=== PATIENT | male | born 1960 | race Caucasian/White ===

== ENCOUNTER → 2016-03-15 | Outpatient (CLI) | payer BC ==
[~2016-03-15] MED LIST: CHOL100010 PO; DEXL60CA4 PO; HYDR-5688 PO; IBUP-103 PO; LEVO-366 PO; MULT-506 PO; OMEG10007 PO; PRT/40 PO; SERT-234 PO; TAMS0.4C38 PO; VALA500T60 PO; ZNTT/150 PO
--- NOTE | 2016-03-15 14:32 | DIAGNOSTIC IMAGING REPORT ---
TESTICULAR ULTRASOUND CLINICAL HISTORY: Right testicular pain COMPARISON STUDY: No previous studies for comparison. FINDINGS: The right testis measures 4.9 x 2.3 x 3.2 cm. Left testis measures 5.1 x 2.2 x 2.9 cm. There are no intratesticular masses. There is no evidence of testicular torsion. There are postsurgical changes visualized within the right inguinal region. There are trace bilateral hydroceles. The right testis appears to demonstrate an inverted orientation IMPRESSION: 1. No evidence of intratesticular mass 2. No evidence of testicular torsion 3. Postsurgical changes in the right inguinal region Electronically signed by: Javi Badillo M.D. 03/15/2016 2:30 PM Dictated Date/Time: 03/15/2016 2:29 PM
== END | disposition home or self-care (01) ==
LOC: C.ULTR 13:55
PROVIDERS: ATTEND Urology
DX: N50.811 Right testicular pain (principal)

== ENCOUNTER 2016-08-30 10:35 | Emergency (ER) | payer BC ==
[~2016-08-30] VITALS: Ht 177.8 cm; Wt 98.5 kg
[~2016-08-30 10:35] MED LIST changes: -HYDR-5688 PO; -LEVO-366 PO; -PRT/40 PO; -VALA500T60 PO
[2016-08-30] MEDS ORDERED: ACETAMINOPHEN 500 MG TAB PO STA (10:46)
[2016-08-30] MEDS ORDERED: SODIUM CHLORIDE 0.9% 1000ML 1,000 ML IV ONE (10:46)
[2016-08-30] MEDS ORDERED: PIPERACILLIN/TAZOBACTAM 4.5 GM/100ML D5W IV STA (10:46)
[2016-08-30] MEDS ORDERED: KETOROLAC TROMETHAMINE 30 MG/ML VIAL IV STA (10:46)
[2016-08-30] MEDS ORDERED: ONDANSETRON INJ 2 MG/ML 2 ML VIAL IV STA (10:46)
[2016-08-30 10:54] VITALS: Ht 177.8 cm; Wt 98.5 kg
[2016-08-30 11:10] LABS: URINE APPEARANCE CLOUDY (CLEAR); URINE BILIRUBIN NEG (NEG); URINE COLOR DK YELLOW; URINE EPITHELIAL CELL AUTO >30 /lpf (0-5); URINE NITRITE POS (NEG); URINE PH 5.5 (4.5-7.5); URINE SPECIFIC GRAVITY 1.023 (1.000-1.030); UROBILINOGEN NEG (NEG); ZZUR CULT IF INDIC CLEAN CATCH YES
[2016-08-30 11:14] LABS: MANUAL MICROSCOPIC REQUIRED? NO; REVIEW REQ? NO
--- NOTE | 2016-08-30 11:15 | DIAGNOSTIC IMAGING REPORT ---
CHEST ONE VIEW PORTABLE CLINICAL HISTORY: Sepsis dyspnea COMPARISON STUDY: 08/23/2010 FINDINGS: The bones soft tissues and hemidiaphragms are normal. The cardiomediastinal silhouette is normal. The lungs are clear. The pulmonary vasculature is normal. IMPRESSION: Negative chest. Electronically signed by: Edinson Pereira M.D. 08/30/2016 11:13 AM Dictated Date/Time: 08/30/2016 11:13 AM
[2016-08-30 11:25] VITALS: O2SAT 95
[2016-08-30 11:31] LABS: BASO % 0.1 %; BASO ABS # 0.01 K/uL (0-0.2); COMPLETE YES; EOS % 0.3 %; HEMATOCRIT 48.1 % (42-52); IG% 0.2 %; LYMPH % 5.3 %; MEAN CELL VOLUME 90.6 fL (80-100); MEAN CORPUSCULAR HEMOGLOBIN 30.1 pg (25-34); MEAN CORPUSCULAR HGB CONC 33.3 g/dl (32-36); MEAN PLATELET VOLUME 9.9 fL (7.4-10.4); MONO % 7.9 %; NEUT % 86.2 %; PLATELET COUNT 171 K/uL (130-400); RED BLOOD COUNT 5.31 M/uL (4.7-6.1); WHITE BLOOD COUNT 14.97 K/uL (4.8-10.8)
--- NOTE | 2016-08-30 11:32 | DIAGNOSTIC IMAGING REPORT ---
CT OF THE ABDOMEN AND PELVIS WITHOUT CONTRAST, STONE PROTOCOL CLINICAL HISTORY: Urinary symptoms, fever, hematuria and weight loss. COMPARISON STUDY: CT of the abdomen and pelvis October 01, 2006. TECHNIQUE: Helical axial images of the abdomen and pelvis were obtained without IV or oral contrast according to renal stone protocol. FINDINGS: Lung bases are clear. No renal, ureteral or bladder calculi are identified. There is no hydronephrosis or hydroureter. There is mild symmetric bilateral perinephric infiltration. Moderate bladder wall thickening is accentuated by underdistention. There is mild adjacent infiltration. There is infiltration within the right groin. This may be postsurgical. There are scrotal surgical clips. Evaluation of the remainder of the abdomen and pelvis is suboptimal on this unenhanced exam. There is fatty infiltration of the liver. The spleen, adrenal glands and pancreas are normal. There is no evidence for a bowel obstruction. The appendix is normal. No suspicious skeletal lesions are identified. IMPRESSION: 1. No urinary calculi or hydronephrosis. 2. Moderate bladder wall thickening which is accentuated by underdistention. Mild infiltration adjacent to the bladder. The findings could be correlated with urinalysis. 3. Subtle right groin infiltration which is likely postsurgical. No associated fluid collection. 4. Fatty liver. Electronically signed by: Santiago Bernardo M.D. 08/30/2016 11:31 AM Dictated Date/Time: 08/30/2016 11:21 AM
[2016-08-30] MEDS ORDERED: VALA500T60 PO (11:38)
[2016-08-30] MEDS ORDERED: PRT/40 PO (11:38)
[2016-08-30 11:42] LABS: PARTIAL THROMBOPLASTIN RATIO 1.2; PROTHROMBIN TIME (PATIENT) 11.2 SECONDS (9.0-12.0)
--- NOTE | 2016-08-30 11:49 | EMERGENCY ROOM VISIT NOTE ---
History Report prepared by Jose: Eve Yuen Under the Supervision of: Dr. Ross De La Fuente M.D. First contact with patient: 10:45 Chief Complaint: URINARY SYMPTOMS Stated Complaint: URINARY SYMPTOMS, FEVER, WEIGHT LOSS Nursing Triage Summary: Pt c/o trouble urinating since the 28 of August and pain in abdomen and back on left side. Fever last night highter than 102 and today. Ibuprofen around 0700 Called urologist, told to come here. History of Present Illness The patient is a 56 year old male who presents to the Emergency Room with complaints of worsening urinary symptoms that started 2 days ago. He is experiencing pain with urination, increased urinary frequency, and decreased urine volume. He states that it is painful to urinate and it does not burn. The patient is also experiencing left lower quadrant abdominal pain and lower left- sided back pain. The patient took ibuprofen around 0700 this morning. He is also experiencing fevers and chills. He recorded a fever of 102.9 yesterday and 102.3 this morning. He is also experiencing a headache and nausea. He states that the nausea started this morning and he denies any vomiting. The patient states that he has not eaten much yesterday or today. The patient is also experiencing edema in his bilateral hands. The patient states that he did yard work 4-5 days ago, hiked [place] 3 days ago, and took a 22 mile bike ride 2 days ago so originally he thought his pain was secondary to all of the activity that he had been doing. The patient adds that he recently had a right inguinal hernia repair. He denies testicular pain. The patient called his urologist and he told him to come into the ED for further evaluation. The patient denies any history of kidney stones, but he states that he had a kidney infection when he was 15. The patient adds that he recently had a urinary tract infection. Source of History: patient Onset: 2 days ago Position: abdomen Quality: other (pain with urination, increased urinary frequency, decreased urine volume) Timing: worsening Associated Symptoms: + fevers, + chills, + headache, + nausea, + abdominal pain (left lower quadrant), + back pain (lower left-sided), No vomiting Note: bilateral hand edema, no testiculr pain Review of Systems See HPI for pertinent positives & negatives. A total of 10 systems reviewed and were otherwise negative. Past Medical & Surgical Medical Problems: (1) Kidney disease Surgical Problems: (1) History of cervical spinal surgery (2) History of inguinal hernia repair (3) Status post correction of deviated nasal septum Family History Cancer Diabetes mellitus Seizures Social History Smoking Status: Never Smoker Marital Status: Housing Status: lives with family Occupation Status: employed Current/Historical Medications Scheduled Cholecalciferol (Vitamin D), 1 TAB PO QAM Fish Oil (Ollie-3), 1 CAP PO QAM Levofloxacin (Levaquin), 500 MG PO DAILY Multivitamin (Multivitamin), 1 TAB PO QAM Pantoprazole (Pantoprazole Sodium), 40 MG PO BID Ranitidine (Zantac), 150 MG PO HS Sertraline (Zoloft), 100 MG PO QAM Tamsulosin Hcl (Flomax), 0.4 MG PO HS Valacyclovir (Valtrex), 500 MG PO BID Scheduled PRN Ibuprofen Tab (Advil), 200-600 MG PO Q4H PRN for Pain Allergies Coded Allergies: Dust (Verified Allergy, Unknown, EYE SWELLING AND SOB, 08/30/16) Lactose Intolerance (GI) (Verified Allergy, Unknown, DIARRHEA, 08/30/16) Molds and Smuts (Verified Allergy, Unknown, EYE SWELLING AND SOB, 08/30/16) NO KNOWN DRUG ALLERGIES (Verified Allergy, Unknown, ., 02/22/16) Shellfish (Verified Allergy, Unknown, N/V/ITCHY, 08/30/16) Physical Exam Vital Signs Date Time Temp Pulse Resp B/P (MAP) Pulse Ox O2 Delivery O2 Flow Rate FiO2 08/30/16 13:32 89 18 112/76 96 08/30/16 12:55 37.5 96 20 95 Room Air 08/30/16 12:30 100 16 126/93 94 Room Air 08/30/16 12:09 100 08/30/16 11:25 95 Room Air 08/30/16 11:25 108 18 126/80 95 Room Air 08/30/16 10:38 38.1 112 18 126/71 94 Room Air Physical Exam GENERAL: Patient is in no acute distress. HEENT: No acute trauma, normocephalic atraumatic, mucous membranes moist, no nasal congestion, no scleral icterus. NECK: No stridor, no adenopathy, no meningismus, trachea is midline. LUNGS: Clear to auscultation bilaterally, no wheeze, no rhonchi, breath sounds equal. HEART: Tachycardic, regular rhythm, no murmurs. ABDOMEN: Soft, tender in left lower quadrant, bowel sounds positive, no hernias , no peritonitis. BACK: Left flank discomfort with percussion. EXTREMITIES: No cyanosis or edema, full range of motion of all the joints without pain or difficulty, no signs for acute trauma. NEUROLOGIC: Oriented x 3, no acute motor or sensory deficits, no focal weakness. SKIN: No rash, no jaundice, no diaphoresis. Medical Decision & Procedures ER Provider Diagnostic Interpretation: Radiology results as stated below per my review and radiologist interpretation: CHEST ONE VIEW PORTABLE FINDINGS: The bones soft tissues and hemidiaphragms are normal. The cardiomediastinal silhouette is normal. The lungs are clear. The pulmonary vasculature is normal. IMPRESSION: Negative chest. Electronically signed by: Edinson Pereira M.D. 08/30/2016 11:13 AM Dictated Date/Time: 08/30/2016 11:[address] OF THE ABDOMEN AND PELVIS WITHOUT CONTRAST, STONE PROTOCOL FINDINGS: Lung bases are clear. No renal, ureteral or bladder calculi are identified. There is no hydronephrosis or hydroureter. There is mild symmetric bilateral perinephric infiltration. Moderate bladder wall thickening is accentuated by underdistention. There is mild adjacent infiltration. There is infiltration within the right groin. This may be postsurgical. There are scrotal surgical clips. Evaluation of the remainder of the abdomen and pelvis is suboptimal on this unenhanced exam. There is fatty infiltration of the liver. The spleen, adrenal glands and pancreas are normal. There is no evidence for a bowel obstruction. The appendix is normal. No suspicious skeletal lesions are identified. IMPRESSION: 1. No urinary calculi or hydronephrosis. 2. Moderate bladder wall thickening which is accentuated by underdistention. Mild infiltration adjacent to the bladder. The findings could be correlated with urinalysis. 3. Subtle right groin infiltration which is likely postsurgical. No associated fluid collection. 4. Fatty liver. Electronically signed by: Santiago Bernardo M.D. 08/30/2016 11:31 AM Dictated Date/Time: 08/30/2016 11:21 AM Laboratory Results 08/30/16 11:02 Red Blood Count 5.31, Mean Corpuscular Volume 90.6, Mean Corpuscular Hemoglobin 30.1, Mean Corpuscular Hemoglobin Concent 33.3, Mean Platelet Volume 9.9, Neutrophils (%) (Auto) 86.2, Lymphocytes (%) (Auto) 5.3, Monocytes (%) (Auto) 7.9, Eosinophils (%) (Auto) 0.3, Basophils (%) (Auto) 0.1, Neutrophils # (Auto) 12.89, Lymphocytes # (Auto) 0.80, Monocytes # (Auto) 1.19, Eosinophils # (Auto) 0.05, Basophils # (Auto) 0.01 08/30/16 11:02 Test 08/30/16 10:52 08/30/16 11:02 08/30/16 11:13 Urine Color DK YELLOW Urine Appearance CLOUDY (CLEAR) Urine pH 5.5 (4.5-7.5) Urine Specific [place] 1.023 (1.000-1.030) Urine Protein 1+ (NEG) Urine Glucose (UA) NEG (NEG) Urine Ketones TRACE (NEG) Urine Occult Blood 2+ (NEG) Urine Nitrite POS (NEG) Urine Bilirubin NEG (NEG) Urine Urobilinogen NEG (NEG) Urine Leukocyte Esterase LARGE (NEG) Urine WBC (Auto) >30 /hpf (0-5) Urine RBC (Auto) 5-10 /hpf (0-4) Urine Hyaline Casts (Auto) 1-5 /lpf (0-5) Urine Epithelial Cells (Auto) >30 /lpf (0-5) Urine Bacteria (Auto) 4+ (NEG) White Blood Count 14.97 K/uL (4.8-10.8) Red Blood Count 5.31 M/uL (4.7-6.1) Hemoglobin 16.0 g/dL (14.0-18.0) Hematocrit 48.1 % (42-52) Mean Corpuscular Volume 90.6 fL (80-100) Mean Corpuscular Hemoglobin 30.1 pg (25-34) Mean Corpuscular Hemoglobin Concent 33.3 g/dl (32-36) Platelet Count 171 K/uL (130-400) Mean Platelet Volume 9.9 fL (7.4-10.4) Neutrophils (%) (Auto) 86.2 % Lymphocytes (%) (Auto) 5.3 % Monocytes (%) (Auto) 7.9 % Eosinophils (%) (Auto) 0.3 % Basophils (%) (Auto) 0.1 % Neutrophils # (Auto) 12.89 K/uL (1.4-6.5) Lymphocytes # (Auto) 0.80 K/uL (1.2-3.4) Monocytes # (Auto) 1.19 K/uL (0.11-0.59) Eosinophils # (Auto) 0.05 K/uL (0-0.5) Basophils # (Auto) 0.01 K/uL (0-0.2) RDW Standard Deviation 41.6 fL (36.4-46.3) RDW Coefficient of Variation 12.6 % (11.5-14.5) Immature Granulocyte % (Auto) 0.2 % Immature Granulocyte # (Auto) 0.03 K/uL (0.00-0.02) Prothrombin Time 11.2 SECONDS (9.0-12.0) Prothromb Time International Ratio 1.0 (0.9-1.1) Activated Partial Thromboplast Time 31.8 SECONDS (21.0-31.0) Partial Thromboplastin Ratio 1.2 Anion Gap 8.0 mmol/L (3-11) Est Creatinine Clear Calc Drug Dose 73.8 ml/min Estimated GFR () 70.2 Estimated GFR (Non- 60.6 BUN/Creatinine Ratio 9.8 (10-20) Calcium Level 9.0 mg/dl (8.5-10.1) Total Bilirubin 2.1 mg/dl (0.2-1) Aspartate Amino Transf (AST/SGOT) 19 U/L (15-37) Alanine Aminotransferase (ALT/SGPT) 34 U/L (12-78) Alkaline Phosphatase 56 U/L (45-117) Total Protein 7.8 gm/dl (6.4-8.2) Albumin 3.6 gm/dl (3.4-5.0) Globulin 4.2 gm/dl (2.5-4.0) Albumin/Globulin Ratio 0.9 (0.9-2) Bedside Lactic Acid Venous 1.38 mmol/L (0.90-1.70) Laboratory results reviewed by me. Medications Administered Medications (Trade) Dose Ordered Sig/Dino Route Start Time Stop Time Status Last Admin Dose Admin Sodium Chloride 1,000 ml @ 999 mls/hr Q1H1M ONCE IV 08/30/16 10:46 08/30/16 11:46 DC 08/30/16 11:23 999 MLS/HR Piperacillin Sod/ Tazobactam Sod (Zosyn Iv) 4.5 gm ONE STAT IV 08/30/16 10:46 08/30/16 10:51 DC 08/30/16 11:24 4.5 GM Acetaminophen (Tylenol Tab) 1,000 mg NOW STAT PO 08/30/16 10:46 08/30/16 10:51 DC 08/30/16 11:25 1,000 MG Ketorolac Tromethamine (Toradol Inj) 15 mg NOW STAT IV 08/30/16 10:46 08/30/16 10:51 DC 08/30/16 11:24 15 MG Ondansetron HCl (Zofran Inj) 4 mg NOW STAT IV 08/30/16 10:46 08/30/16 10:51 DC 08/30/16 11:25 4 MG Levofloxacin (Levaquin Tab) 750 mg NOW STAT PO 08/30/16 13:07 08/30/16 13:09 DC 08/30/16 13:23 750 MG ED Course 1046: The patient was evaluated in room C10. A complete history and physical exam was performed. Ordered Zofran Inj 4 mg IV, Toradol Inj 15 mg IV, Tylenol Tab 1000 mg PO, Zosyn 4.5 gm IV, Sodium Chloride 1000 ml @ 999 mls/hr IV 1225: I reassessed the patient. He is doing well. He is going to talk with his and decide about staying or going home. 1304: Reevaluated the patient. He is doing well. Discussed results and discharge instructions: he verbalized understanding and agreement. The patient is ready for discharge. 1307: Ordered Levofloxacin 750 mg PO Medical Decision Differential diagnoses considered include pyelonephritis, urinary retention, renal colic, sepsis, bacteremia, dehydration, renal failure, diverticulitis. Medication Reconciliation: I attest that I have personally reviewed the patient' s current medication list. Blood Pressure Screening: Patient was found to have normal blood pressure on screening and does not require follow-up. There is a mild leukocytosis, this is likely consistent with infection. No concerning anemia. No significant electrolyte abnormality, kidney failure or hepatitis. Urinalysis does suggest infection. Urine culture and blood cultures are pending. Chest film does not show pneumonia. Abdominal and pelvis CT shows thickening of the bladder consistent with urinary infection. No bowel obstruction. No evidence for urinary tract obstruction. Lactic acid level is not elevated making severe sepsis less likely. The patient received IV saline, IV Toradol and IV Zofran. He was given oral Tylenol. He was given IV Zosyn and a dose of oral Levaquin. The patient feels markedly improved, his vital signs are stable. He would like to be discharged home, I think this is reasonable. I did discuss a hospital stay with him though. The patient will be discharged on Levaquin. [id number] pain and fever control was suggested. He will stay well hydrated. If he is worsening or not improving he will return. He will follow with his urologist and with his family doctor as an outpatient. He does appear to have a UTI and possibly early pyelonephritis. Impression Primary Impression: Pyelonephritis Scribe Attestation The scribe's documentation has been prepared under my direction and personally reviewed by me in its entirety. I confirm that the note above accurately reflects all work, treatment, procedures, and medical decision making performed by me. Departure Information Dispostion Home / Self-Care Prescriptions Levofloxacin (Levaquin) 500 Mg Tab 500 MG PO DAILY for 9 Days, #9 TAB Prov: Ross De La Fuente M.D. 08/30/16 Referrals Martin Limon Jr,D.O. (PCP) Forms HOME CARE DOCUMENTATION FORM, IMPORTANT VISIT INFORMATION Patient Instructions My [facility] Additional Instructions fluids rest motrin and or tylenol for pain and fever Levaquin daily for 9 more days--next dose tomorrow see ramón saab for a recheck and urology as well return if worsening or not improving
[2016-08-30 11:51] LABS: ALB/GLOB RATIO 0.9 (0.9-2); BUN/CREATININE RATIO 9.8 (10-20); CREATININE 1.3 mg/dl (0.60-1.40)
[2016-08-30 11:55] LABS: POTASSIUM 3.6 mmol/L (3.5-5.1)
[2016-08-30 12:55] VITALS: TEMP 37.5
[2016-08-30] MEDS ORDERED: LEVOFLOXACIN 250 MG TAB PO STA (13:07)
[2016-08-30] MEDS ORDERED: LEVO-366 PO (13:11)
[2016-08-30 13:32] VITALS: BP 112/76; PULSE 89; O2SAT 96
== END 2016-08-30 13:34 | disposition home or self-care (01) ==
LOC: C.EDB 10:38 → C.EDC 13:34
DX: N12 Tubulo-interstitial nephritis, not specified as acute or chronic (principal); Z87.442 Personal history of urinary calculi; Z98.890 Other specified postprocedural states; Z79.899 Other long term (current) drug therapy; Z91.011 Allergy to milk products; Z91.018 Allergy to other foods; Z80.9 Family history of malignant neoplasm, unspecified; Z83.3 Family history of diabetes mellitus; Z82.0 Family history of epilepsy and other diseases of the nervous system

== ENCOUNTER 2016-12-04 12:14 | Emergency (ER) | payer BC ==
[~2016-12-04] VITALS: Ht 177.8 cm; Wt 101.3 kg
[~2016-12-04 12:14] MED LIST changes: -DEXL60CA4 PO; +PRT/40 PO; +VALA500T60 PO
[2016-12-04 12:17] VITALS: TEMP 36.9; Ht 177.8 cm; Wt 101.3 kg
[2016-12-04] MEDS ORDERED: SODIUM CHLORIDE 0.9% 1000ML 1,000 ML IV STA (12:48)
[2016-12-04] MEDS ORDERED: KETOROLAC TROMETHAMINE 30 MG/ML VIAL IV STA (12:48)
[2016-12-04] MEDS ORDERED: METOCLOPRAMIDE HCL INJ 5 MG/ML 2 ML VIAL IV STA (12:48)
[2016-12-04 12:55] VITALS: O2SAT 97
--- NOTE | 2016-12-04 13:13 | DIAGNOSTIC IMAGING REPORT ---
CHEST ONE VIEW PORTABLE CLINICAL HISTORY: 56 years-old Male presenting with CHEST PAIN. TECHNIQUE: Portable upright AP view of the chest was obtained. COMPARISON: 08/30/2016. FINDINGS: Cardiomediastinal silhouette normal. Lungs and pleural spaces clear. Osseous structures normal. Upper abdomen normal. IMPRESSION: 1. No acute cardiopulmonary disease. Electronically signed by: Terry Stauffer M.D. 12/04/2016 1:11 PM Dictated Date/Time: 12/04/2016 1:11 PM
[2016-12-04 13:29] LABS: BASO % 0.2 %; BASO ABS # 0.02 K/uL (0-0.2); COMPLETE YES; EOS % 0.8 %; HEMATOCRIT 48.4 % (42-52); IG% 0.2 %; LYMPH % 23.6 %; LYMPH ABS # 1.99 K/uL (1.2-3.4); MEAN CELL VOLUME 89.1 fL (80-100); MEAN CORPUSCULAR HGB CONC 33.7 g/dl (32-36); MEAN PLATELET VOLUME 9.8 fL (7.4-10.4); MONO % 6.9 %; NEUT % 68.3 %; PLATELET COUNT 221 K/uL (130-400); RED BLOOD COUNT 5.43 M/uL (4.7-6.1); WHITE BLOOD COUNT 8.42 K/uL (4.8-10.8)
[2016-12-04 13:38] LABS: ALT/SGPT 29 U/L (12-78); BLOOD UREA NITROGEN 11 mg/dl (7-18); BUN/CREATININE RATIO 10.4 (10-20); CALCIUM 9.1 mg/dl (8.5-10.1); CARBON DIOXIDE 29 mmol/L (21-32); CHLORIDE 104 mmol/L (98-107); GLUCOSE 106 mg/dl (70-99); POTASSIUM 3.9 mmol/L (3.5-5.1); SODIUM 138 mmol/L (136-145)
[2016-12-04 13:44] LABS: ALKALINE PHOSPHATASE 45 U/L (45-117); AST/SGOT 17 U/L (15-37)
--- NOTE | 2016-12-04 14:52 | EMERGENCY ROOM VISIT NOTE ---
History Report prepared by Rosaibjessie: Anthony Flores Under the Supervision of: Dr. Bean Pablo M.D. First contact with patient: 12:46 Chief Complaint: CHEST PAIN Stated Complaint: HYPERTENSION, CHEST AND ARM PAIN Nursing Triage Summary: triage note: pt reports left chest pain that radiates down left arm "for the past several days." pt reports he was seen by his pcp today and sent to ed for further eval. History of Present Illness The patient is a 56 year old male who presents to the Emergency Room with complaints of waxing and waning chest pain and left arm pain beginning six days ago. He was seen by his PCP just prior to arrival and referred to the ED. He notes that he has been mildly hypertensive for the past week. The patient rates his current pain as a 6/10 in severity. He also complains of a persistent headache and heart palpitations. He states that he recent traveled between [facility] and [place], and was frequently flying and taking trains. The patient has no known history of blood clots. He is on Sertraline for anxiety and depression. He denies nausea. The patient notes that he had an episode of intense chest pain while on a plane last week. He denies any recent straining or trauma. Source of History: patient Onset: Six days ago Position: chest, arm (left) Symptom Intensity: 6/10 Timing: waxes/wanes Associated Symptoms: + headache, No nausea Note: Additional symptoms: heart palpitations. Review of Systems See HPI for pertinent positives and negatives. A total of ten systems were reviewed and were otherwise negative. Past Medical & Surgical Medical Problems: (1) Kidney disease Surgical Problems: (1) History of cervical spinal surgery (2) History of inguinal hernia repair (3) Status post correction of deviated nasal septum Family History Cancer Diabetes mellitus Seizures Social History Smoking Status: Never Smoker Marital Status: Housing Status: lives with family Occupation Status: employed Current/Historical Medications Scheduled Multivitamin (Multivitamin), 1 TAB PO QAM Pantoprazole (Pantoprazole Sodium), 40 MG PO BID Sertraline (Zoloft), 100 MG PO QAM Allergies Coded Allergies: Dust (Verified Allergy, Unknown, EYE SWELLING AND SOB, 12/04/16) Lactose Intolerance (GI) (Verified Allergy, Unknown, DIARRHEA, 12/04/16) Molds and Smuts (Verified Allergy, Unknown, EYE SWELLING AND SOB, 12/04/16 ) NO KNOWN DRUG ALLERGIES (Verified Allergy, Unknown, ., 12/04/16) Shellfish (Verified Allergy, Unknown, N/V/ITCHY, 12/04/16) Physical Exam Vital Signs Date Time Temp Pulse Resp B/P (MAP) Pulse Ox O2 Delivery O2 Flow Rate FiO2 12/04/16 14:59 67 18 136/93 97 12/04/16 14:03 72 20 148/98 98 Room Air 12/04/16 13:21 69 18 166/106 94 Room Air 12/04/16 12:55 97 Room Air 12/04/16 12:31 72 12/04/16 12:17 36.9 68 18 147/93 94 Room Air Physical Exam GENERAL: Awake, alert, well-appearing, in no distress HENT: Normocephalic, atraumatic. Oropharynx unremarkable. EYES: Normal conjunctiva. Sclera non-icteric. NECK: Supple. No nuchal rigidity. FROM. No JVD. RESPIRATORY: Clear to auscultation. CARDIAC: Regular rate, normal rhythm. Extremities warm and well perfused. Pulses equal. ABDOMEN: Soft, non-distended. No tenderness to palpation. No rebound or guarding. No masses. RECTAL: Deferred. MUSCULOSKELETAL: Chest examination reveals no tenderness. The back is symmetrical on inspection without obvious abnormality. There is no CVA tenderness to palpation. No joint edema. LOWER EXTREMITIES: Calves are equal size bilaterally and non-tender. No edema. No discoloration. NEURO: Normal sensorium. No sensory or motor deficits noted. SKIN: No rash or jaundice noted. Medical Decision & Procedures ER Provider Diagnostic Interpretation: X-ray: Per my interpretation, radiologist review. CHEST ONE VIEW PORTABLE FINDINGS: Cardiomediastinal silhouette normal. Lungs and pleural spaces clear. Osseous structures normal. Upper abdomen normal. IMPRESSION: 1. No acute cardiopulmonary disease. Electronically signed by: Terry Stauffer M.D. 12/04/2016 1:11 PM Laboratory Results 12/04/16 12:30 Red Blood Count 5.43, Mean Corpuscular Volume 89.1, Mean Corpuscular Hemoglobin 30.0, Mean Corpuscular Hemoglobin Concent 33.7, Mean Platelet Volume 9.8, Neutrophils (%) (Auto) 68.3, Lymphocytes (%) (Auto) 23.6, Monocytes (%) (Auto) 6.9, Eosinophils (%) (Auto) 0.8, Basophils (%) (Auto) 0.2, Neutrophils # (Auto) 5.74, Lymphocytes # (Auto) 1.99, Monocytes # (Auto) 0.58, Eosinophils # (Auto) 0.07, Basophils # (Auto) 0.02 12/04/16 12:30 Test 12/04/16 12:30 White Blood Count 8.42 K/uL (4.8-10.8) Red Blood Count 5.43 M/uL (4.7-6.1) Hemoglobin 16.3 g/dL (14.0-18.0) Hematocrit 48.4 % (42-52) Mean Corpuscular Volume 89.1 fL (80-100) Mean Corpuscular Hemoglobin 30.0 pg (25-34) Mean Corpuscular Hemoglobin Concent 33.7 g/dl (32-36) Platelet Count 221 K/uL (130-400) Mean Platelet Volume 9.8 fL (7.4-10.4) Neutrophils (%) (Auto) 68.3 % Lymphocytes (%) (Auto) 23.6 % Monocytes (%) (Auto) 6.9 % Eosinophils (%) (Auto) 0.8 % Basophils (%) (Auto) 0.2 % Neutrophils # (Auto) 5.74 K/uL (1.4-6.5) Lymphocytes # (Auto) 1.99 K/uL (1.2-3.4) Monocytes # (Auto) 0.58 K/uL (0.11-0.59) Eosinophils # (Auto) 0.07 K/uL (0-0.5) Basophils # (Auto) 0.02 K/uL (0-0.2) RDW Standard Deviation 42.9 fL (36.4-46.3) RDW Coefficient of Variation 13.2 % (11.5-14.5) Immature Granulocyte % (Auto) 0.2 % Immature Granulocyte # (Auto) 0.02 K/uL (0.00-0.02) Anion Gap 6.0 mmol/L (3-11) Est Creatinine Clear Calc Drug Dose 88.4 ml/min Estimated GFR () 85.9 Estimated GFR (Non- 74.1 BUN/Creatinine Ratio 10.4 (10-20) Calcium Level 9.1 mg/dl (8.5-10.1) Total Bilirubin 0.9 mg/dl (0.2-1) Direct Bilirubin 0.2 mg/dl (0-0.2) Aspartate Amino Transf (AST/SGOT) 17 U/L (15-37) Alanine Aminotransferase (ALT/SGPT) 29 U/L (12-78) Alkaline Phosphatase 45 U/L (45-117) Troponin I < 0.015 ng/ml (0-0.045) Total Protein 7.5 gm/dl (6.4-8.2) Albumin 3.9 gm/dl (3.4-5.0) Lipase 154 U/L (73-393) Laboratory results reviewed by me Medications Administered Medications (Trade) Dose Ordered Sig/Dino Route Start Time Stop Time Status Last Admin Dose Admin Sodium Chloride 1,000 ml @ 999 mls/hr Q1H1M STAT IV 12/04/16 12:48 12/04/16 13:48 DC 12/04/16 13:00 999 MLS/HR Ketorolac Tromethamine (Toradol Inj) 30 mg NOW STAT IV 12/04/16 12:48 12/04/16 12:54 DC 12/04/16 13:01 30 MG Metoclopramide HCl (Reglan Inj) 10 mg NOW STAT IV 12/04/16 12:48 12/04/16 12:54 DC 12/04/16 13:01 10 MG ECG Indication: chest pain Rate (beats per minute): 71 Rhythm: normal sinus Findings: no acute ischemic change, other (Normal axis. Q-wave in V2. ) Comparison ECG Date: Feb 06, 2016 Change: Q wave is new. ED Course 1247: The patient was evaluated in room A4B. A complete history and physical exam was performed. 1248: Ordered Reglan Inj 10 mg IV, Toradol Inj 30 mg IV, Sodium Chloride 1000 ml @ 999 mls/hr IV. 1452: I reevaluated the patient. Discussed results and discharge instructions: he verbalized understanding and agreement. The patient is ready for discharge. Medical Decision Triage Nursing notes reviewed. The patient's presentation and history were concerning for musculoskeletal strain, ACS, pneumonia, bronchitis, and pericarditis. The patient is a 56-year-old gentleman who presents emergency Department with constant left sided chest pain over the past week with associated arm pain. History of present illness. Arrival the patient is in no acute distress, afebrile with stable vital signs. Reproducible chest pain on palpation of the left lateral chest wall and left bicep. EKG is unremarkable with isolated Q- wave in V2 that is new from 1 year ago. Given the patient's constant symptoms and negative troponin, ACS unlikely at this time. Heart score 3, low risk. Patient is not tachycardic and has no shortness of breath or hypoxia therefore PE not likely. Oral for reproducible pain on palpation of chest wall and bicep is most consistent with muscular strain. Chest x-ray negative. Labs otherwise unremarkable. Plan for PCP follow-up for blood pressure and cardiology for further evaluation. Findings and plan for follow-up d/w patient. Patient agreeable and d/c'd per discharge instructions. Medication Reconcilliation Current Medication List: was personally reviewed by me Blood Pressure Screening Patient's blood pressure: Elevated blood pressure Blood pressure disposition: Elevated BP felt to be situational Impression Primary Impression: Left sided chest pain Scribe Attestation The scribe's documentation has been prepared under my direction and personally reviewed by me in its entirety. I confirm that the note above accurately reflects all work, treatment, procedures, and medical decision making performed by me. Departure Information Dispostion Home / Self-Care Referrals Martin Limon,,D.O. (PCP) Patient Instructions Chest Pain - [facility], ED Chest Wall Pain [facility], My [facility] Additional Instructions Please follow up with your primary care physician in the next 1-3 days for re- evaluation and to discuss blood pressure control. You should also follow up with cardiology for further evaluation and possible cardiac testing. Our case management team will help facilitate this. Your symptoms at this time are most consistent with muscular strain. Otherwise, your exam, EKG, chest xray, and lab results did not show signs of an emergent condition at this time. Take acetaminophen or ibuprofen for pain as needed. Return to the emergency department for worsening symptoms as described in the accompanying instructions.
[2016-12-04 14:59] VITALS: BP 136/93; PULSE 67; O2SAT 97
== END 2016-12-04 14:58 | disposition home or self-care (01) ==
LOC: C.EDB 12:16 → C.EDA 14:58
DX: R07.9 Chest pain, unspecified (principal); N28.9 Disorder of kidney and ureter, unspecified; Z80.9 Family history of malignant neoplasm, unspecified; Z83.3 Family history of diabetes mellitus; Z79.899 Other long term (current) drug therapy

== ENCOUNTER → 2016-12-20 | Outpatient (CLI) | payer BC ==
[~2016-12-20] MED LIST changes: -CHOL100010 PO; -IBUP-103 PO; -OMEG10007 PO; +PANT40TA2 PO; -PRT/40 PO; -TAMS0.4C38 PO; -VALA500T60 PO; -ZNTT/150 PO
--- NOTE | 2016-12-20 15:16 | EXERCISE STRESS ECHO ---
*NOTICE TO RECEIVING [employer] This information is strictly Confidential and protected under [place] law. [place] law prohibits you from making any further disclosure of this information unless further disclosure is expressly permitted by the written consent of the person to whom it pertains or is authorized by law. A general authorization for the release of medical or other information is not sufficient for this purpose. Hospital accepts no responsibility if the information is made available to any other person, INCLUDING THE PATIENT. Interpretation Summary * Name: JUAN MANUEL GREENE Study Date: 12/20/2016 11:33 AM BP: 143/89 mmHg * Patient Location: [facility] HR: 68 * : 1960 (M/d/yyyy) Gender: Male Height: 70 in * Age: 56 yrs Ethnicity: [place] Weight: 210 lb * Ordering Physician: Martin Limon * Referring Physician: Martin Limon D.O. * Performed By: Jenelle Toro RDCS * * Reason For Study: Chest Pain, Palpitations * BSA: 2.1 m2 * -- Conclusions -- * Left ventricular systolic function is normal. * Grade I diastolic dysfunction, (abnormal relaxation pattern). * Borderline left atrial enlargement. * There is mild mitral regurgitation. * Diagnostic stress echocardiogram without evidence of inducible ischemia Procedure Details * ECHOEX, CPT #[id number] * ECHO DOPPLER, CPT #[id number] * ECHO COLOR FLOW, CPT #[id number] Left Ventricle * The left ventricle is normal in size. * There is normal left ventricular wall thickness. * Ejection Fraction = 55-60%. * Left ventricular systolic function is normal. * Grade I diastolic dysfunction, (abnormal relaxation pattern). * The left ventricular wall motion is normal. Right Ventricle * The right ventricle is normal in size and function. Atria * Borderline left atrial enlargement. * Right atrial size is normal. Mitral Valve * The mitral valve anatomy is normal. * There is mild mitral regurgitation. Tricuspid Valve * The tricuspid valve is not well visualized, but is grossly normal. * There is trace tricuspid regurgitation. * Right ventricular systolic pressure is normal. Aortic Valve * The aortic valve is normal in structure and function. * No hemodynamically significant valvular aortic stenosis. * There is no significant aortic regurgitation. Great Vessels * The aortic root is normal size. Pericardium * There is no pericardial effusion. Stress Parameters * Normal baseline electrocardiogram. * The stress ECG response was normal * The stress portion of this study was personally supervised by the undersigned interpreting physician. * Rest heart rate was '68' BPM. * Rest blood pressure was '143/89' * Maximum heart rate achieved was 162 bpm. * Maximum heart rate was 99 % of maximum age-predicted heart rate. * Maximum blood pressure was '174/99' * Total exercise time was '10:00' * Maximum exercise MET level achieved was '11.70' METS * Maximum treadmill speed was '4.20' miles per hour. * Maximum treadmill elevation was '16.00'% grade. Left Ventricular Findings with Stress * Baseline EKG was normal sinus rhythm There were no significant ST or T-wave changes during exercise or recovery The baseline echocardiogram was normal There was normal augmentation of all henriquez without inducible wall motion abnormalities with exercise Normal heart rate and blood pressure response to exercise No symptoms reported during exercise or recovery No arrhythmias Normal heart rate recovery Sharp treadmill score: 10 (low risk) MMode 2D Measurements and Calculations IVSd 1.3 cm IVSs 1.5 cm LVIDd 4.1 cm LVIDs 2.9 cm LVPWd 0.93 cm LVPWs 1.3 cm IVS/LVPW 1.4 FS 28.7 % EDV(Teich) 72.5 ml ESV(Teich) 32.1 ml EF(Teich) 55.7 % EDV(cubed) 66.9 ml ESV(cubed) 24.3 ml EF(cubed) 63.7 % % IVS thick 15.8 % % LVPW thick 43.6 % LV mass(C)d 147.8 grams LV mass(C)dI 69.4 grams/m\S\2 LV mass(C)s 133.5 grams LV mass(C)sI 62.6 grams/m\S\2 SV(Teich) 40.4 ml SI(Teich) 19.0 ml/m\S\2 SV(cubed) 42.6 ml SI(cubed) 20.0 ml/m\S\2 Ao root diam 3.0 cm Ao root area 7.1 cm\S\2 ACS 1.7 cm LA dimension 4.0 cm LA/Ao 1.3 LVAd ap4 35.6 cm\S\2 LVLd ap4 9.2 cm EDV(MOD-sp4) 120.9 ml EDV(sp4-el) 116.9 ml LVAs ap4 21.4 cm\S\2 LVLs ap4 7.2 cm ESV(MOD-sp4) 56.1 ml ESV(sp4-el) 53.7 ml EF(MOD-sp4) 53.7 % EF(sp4-el) 54.1 % LVAd ap2 32.6 cm\S\2 LVLd ap2 9.1 cm EDV(MOD-sp2) 102.9 ml EDV(sp2-el) 99.5 ml LVAs ap2 19.7 cm\S\2 LVLs ap2 7.6 cm ESV(MOD-sp2) 47.2 ml ESV(sp2-el) 43.7 ml EF(MOD-sp2) 54.1 % EF(sp2-el) 56.1 % LVLd %diff -1.46 % EDV(MOD-bp) 112.6 ml LVLs %diff 4.6 % ESV(MOD-bp) 51.3 ml EF(MOD-bp) 54.5 % SV(MOD-sp4) 64.9 ml SI(MOD-sp4) 30.4 ml/m\S\2 SV(MOD-sp2) 55.7 ml SI(MOD-sp2) 26.1 ml/m\S\2 SV(MOD-bp) 61.3 ml SI(MOD-bp) 28.8 ml/m\S\2 SV(sp4-el) 63.2 ml SI(sp4-el) 29.7 ml/m\S\2 SV(sp2-el) 55.8 ml SI(sp2-el) 26.2 ml/m\S\2 Doppler Measurements and Calculations MV E max devorah 48.5 cm/sec MV A max devorah 77.1 cm/sec MV E/A 0.63 MV dec time 0.26 sec Ao V2 max 103.5 cm/sec Ao max PG 4.3 mmHg Ao max PG (full) 2.1 mmHg LV V1 max PG 2.2 mmHg LV V1 max 74.4 cm/sec PA V2 max 87.1 cm/sec PA max PG 3.0 mmHg TR max devorah 236.1 cm/sec
--- NOTE | 2016-12-20 16:07 | EXERCISE STRESS ECHO ---
*NOTICE TO RECEIVING [employer] This information is strictly Confidential and protected under [place] law. [place] law prohibits you from making any further disclosure of this information unless further disclosure is expressly permitted by the written consent of the person to whom it pertains or is authorized by law. A general authorization for the release of medical or other information is not sufficient for this purpose. Hospital accepts no responsibility if the information is made available to any other person, INCLUDING THE PATIENT. Interpretation Summary * Name: JUAN MANUEL GREENE Study Date: 12/20/2016 11:33 AM BP: 143/89 mmHg * Patient Location: [facility] HR: 68 * : 1960 (M/d/yyyy) Gender: Male Height: 70 in * Age: 56 yrs Ethnicity: [place] Weight: 210 lb * Ordering Physician: Martin Limon * Referring Physician: Martin Limon D.O. * Performed By: Jenelle Toro RDCS * * Reason For Study: Chest Pain, Palpitations * BSA: 2.1 m2 * -- Conclusions -- * Left ventricular systolic function is normal. * Grade I diastolic dysfunction, (abnormal relaxation pattern). * Borderline left atrial enlargement. * There is mild mitral regurgitation. * Diagnostic stress echocardiogram without evidence of inducible ischemia Procedure Details * ECHOEX, CPT #[id number] * ECHO DOPPLER, CPT #[id number] * ECHO COLOR FLOW, CPT #[id number] Left Ventricle * The left ventricle is normal in size. * There is normal left ventricular wall thickness. * Ejection Fraction = 55-60%. * Left ventricular systolic function is normal. * Grade I diastolic dysfunction, (abnormal relaxation pattern). * The left ventricular wall motion is normal. Right Ventricle * The right ventricle is normal in size and function. Atria * Borderline left atrial enlargement. * Right atrial size is normal. Mitral Valve * The mitral valve anatomy is normal. * There is mild mitral regurgitation. Tricuspid Valve * The tricuspid valve is not well visualized, but is grossly normal. * There is trace tricuspid regurgitation. * Right ventricular systolic pressure is normal. Aortic Valve * The aortic valve is normal in structure and function. * No hemodynamically significant valvular aortic stenosis. * There is no significant aortic regurgitation. Great Vessels * The aortic root is normal size. Pericardium * There is no pericardial effusion. Stress Parameters * Normal baseline electrocardiogram. * The stress ECG response was normal * The stress portion of this study was personally supervised by the undersigned interpreting physician. * Rest heart rate was '68' BPM. * Rest blood pressure was '143/89' * Maximum heart rate achieved was 162 bpm. * Maximum heart rate was 99 % of maximum age-predicted heart rate. * Maximum blood pressure was '174/99' * Total exercise time was '10:00' * Maximum exercise MET level achieved was '11.70' METS * Maximum treadmill speed was '4.20' miles per hour. * Maximum treadmill elevation was '16.00'% grade. Left Ventricular Findings with Stress * Baseline EKG was normal sinus rhythm There were no significant ST or T-wave changes during exercise or recovery The baseline echocardiogram was normal There was normal augmentation of all henriquez without inducible wall motion abnormalities with exercise Normal heart rate and blood pressure response to exercise No symptoms reported during exercise or recovery No arrhythmias Normal heart rate recovery Sharp treadmill score: 10 (low risk) MMode 2D Measurements and Calculations IVSd 1.3 cm IVSs 1.5 cm LVIDd 4.1 cm LVIDs 2.9 cm LVPWd 0.93 cm LVPWs 1.3 cm IVS/LVPW 1.4 FS 28.7 % EDV(Teich) 72.5 ml ESV(Teich) 32.1 ml EF(Teich) 55.7 % EDV(cubed) 66.9 ml ESV(cubed) 24.3 ml EF(cubed) 63.7 % % IVS thick 15.8 % % LVPW thick 43.6 % LV mass(C)d 147.8 grams LV mass(C)dI 69.4 grams/m\S\2 LV mass(C)s 133.5 grams LV mass(C)sI 62.6 grams/m\S\2 SV(Teich) 40.4 ml SI(Teich) 19.0 ml/m\S\2 SV(cubed) 42.6 ml SI(cubed) 20.0 ml/m\S\2 Ao root diam 3.0 cm Ao root area 7.1 cm\S\2 ACS 1.7 cm LA dimension 4.0 cm LA/Ao 1.3 LVAd ap4 35.6 cm\S\2 LVLd ap4 9.2 cm EDV(MOD-sp4) 120.9 ml EDV(sp4-el) 116.9 ml LVAs ap4 21.4 cm\S\2 LVLs ap4 7.2 cm ESV(MOD-sp4) 56.1 ml ESV(sp4-el) 53.7 ml EF(MOD-sp4) 53.7 % EF(sp4-el) 54.1 % LVAd ap2 32.6 cm\S\2 LVLd ap2 9.1 cm EDV(MOD-sp2) 102.9 ml EDV(sp2-el) 99.5 ml LVAs ap2 19.7 cm\S\2 LVLs ap2 7.6 cm ESV(MOD-sp2) 47.2 ml ESV(sp2-el) 43.7 ml EF(MOD-sp2) 54.1 % EF(sp2-el) 56.1 % LVLd %diff -1.46 % EDV(MOD-bp) 112.6 ml LVLs %diff 4.6 % ESV(MOD-bp) 51.3 ml EF(MOD-bp) 54.5 % SV(MOD-sp4) 64.9 ml SI(MOD-sp4) 30.4 ml/m\S\2 SV(MOD-sp2) 55.7 ml SI(MOD-sp2) 26.1 ml/m\S\2 SV(MOD-bp) 61.3 ml SI(MOD-bp) 28.8 ml/m\S\2 SV(sp4-el) 63.2 ml SI(sp4-el) 29.7 ml/m\S\2 SV(sp2-el) 55.8 ml SI(sp2-el) 26.2 ml/m\S\2 Doppler Measurements and Calculations MV E max devorah 48.5 cm/sec MV A max devorah 77.1 cm/sec MV E/A 0.63 MV dec time 0.26 sec Ao V2 max 103.5 cm/sec Ao max PG 4.3 mmHg Ao max PG (full) 2.1 mmHg LV V1 max PG 2.2 mmHg LV V1 max 74.4 cm/sec PA V2 max 87.1 cm/sec PA max PG 3.0 mmHg TR max devorah 236.1 cm/sec
== END | disposition home or self-care (01) ==
LOC: C.CPL 11:28
DX: I50.30 Unspecified diastolic (congestive) heart failure (principal); I34.0 Nonrheumatic mitral (valve) insufficiency

== ENCOUNTER → 2016-12-31 | Outpatient (CLI) | payer BC ==
--- NOTE | 2016-12-31 18:05 | DIAGNOSTIC IMAGING REPORT ---
ADDENDUM Images with the patient in flexion as well as extension are now available for review. The flexion-extension views showed general stability of alignment. There is no evidence for instability of the fusion or any additional component of the cervical region. There is no evidence for progressive loss of spinal canal dimension. All findings remain unchanged in flexion as well as extension IMPRESSION: Flexion and extension views show all findings to be stable compared to the neutral position images. Fusion appears to be stable with no positional compromise of the spinal canal or evidence for positional subluxation of the vertebral bodies. Electronically signed by: dEinson Pereira M.D. 01/03/2017 10:29 AM Dictated Date/Time: 01/03/2017 10:28 AM ORIGINAL REPORT CERVICAL WITHOUT CONTRAST HISTORY: Pain. Neuropathy. CERVICAL PAIN TECHNIQUE: Multiplanar multisequence MRI of the cervical spine was performed without the use of contrast. COMPARISON STUDY: 09/16/2008 FINDINGS: Interval findings of an anterior fusion from C5 through C7. Small punctate focus of increased signal on the C7 mid cervical cord suggesting a small focus of myelomalacia. Moderate degenerative disc changes throughout. C2-C3: No significant central canal or neural foraminal narrowing. C3-C4: Mild broad-based disc bulge. Partial effacement anterior subarachnoid space. No contact with cervical cord. Moderate narrowing of the neuroforamina bilaterally. C4-C5: Minimal left central disc bulge. No significant deformity of the cervical cord. Narrowing of the right to lesser extent left neural foramina. C5-C6: Findings of an anterior fusion at the C5-C6 level. No evidence for disc herniation or spinal stenosis. C6-C7: Interval anterior fusion. Minimal disc bulge. No impact with cervical cord. Neural foramina are patent bilaterally. Very small focus of increased signal right central cervical cord. C7-T1: Mild broad-based disc bulge with partial effacement of the anterior subarachnoid space. No significant impact with cervical or. Neuroforamina are patent bilaterally. IMPRESSION: 1. Interval anterior cervical fusion from C5 through C7. 2. Disc herniations at C5-C6 and C6-C7 on the prior studies are no longer present. 3. Broad-based bulging disc C4-C5 and to a lesser extent C3-C4. 4. Multilevel narrowing of the neuroforamina bilaterally as discussed. The above report was generated using voice recognition software. It may contain grammatical, syntax or spelling errors. Electronically signed by: Edinson Pereira M.D. 12/31/2016 6:04 PM Dictated Date/Time: 12/31/2016 5:57 PM
== END | disposition home or self-care (01) ==
LOC: C.MRIBC 15:54
DX: M47.12 Other spondylosis with myelopathy, cervical region (principal); M33.22 Polymyositis with myopathy; M50.20 Other cervical disc displacement, unspecified cervical region

== ENCOUNTER → 2017-02-08 | Outpatient (CLI) | payer BC ==
[~2017-02-08] MED LIST changes: +OPTIRAY 320 IV PRN
--- NOTE | 2017-02-08 13:45 | DIAGNOSTIC IMAGING REPORT ---
CHEST ANGIO WITH CONTRAST CLINICAL HISTORY: chest pain, hypertension, fx hx of aortic aneurysm, with only TECHNIQUE: Transaxial acquisition of multi axial reformatted images. COMPARISON STUDY: None FINDINGS: Thoracic aorta is normal in course and caliber. No evidence for aneurysm or dissection. Lungs are considered clear. No significant cardiac enlargement. IMPRESSION: Negative study of the thoracic aorta. Pulmonary vasculature enhances appropriately. The above report was generated using voice recognition software. It may contain grammatical, syntax or spelling errors. Electronically signed by: Edinson Pereira M.D. 02/08/2017 1:44 PM Dictated Date/Time: 02/08/2017 1:39 PM
== END | disposition home or self-care (01) ==
LOC: C.CTS 12:19
DX: R07.89 Other chest pain (principal); I10 Essential (primary) hypertension; Z82.49 Family history of ischemic heart disease and other diseases of the circulatory system

== ENCOUNTER → 2017-07-10 | Outpatient (CLI) | payer OTHER ==
[~2017-07-10] MED LIST changes: -OPTIRAY 320 IV PRN
--- NOTE | 2017-07-10 21:27 | DIAGNOSTIC IMAGING REPORT ---
RIGHT SHOULDER MRI HISTORY: Right shoulder pain. ACUTE ONSET CHRONIC ROTATOR CUFF INJURY TECHNIQUE: Multiplanar multisequence MRI of the right shoulder was performed without contrast. COMPARISON STUDY: None. FINDINGS: AC joint: Mild AC joint arthrosis demonstrated by joint space narrowing and mild subchondral edema. Rotator cuff: Abnormal signal in thickening within the mid to distal subscapularis tendon with associated partial undersurface tear. There may be a small linear interstitial tear at the mid to distal subscapularis tendon. The supraspinatus, infraspinatus, teres minor tendons are intact. Labrum: Abnormal signal within the posterior superior labrum consistent with a tear. Biceps tendon: Abnormal thickening within the mid to distal biceps tendon within the bicipital groove consistent with a high-grade partial tear. Approximately 75% of the fibers are torn. No evidence for full-thickness tear. Bones: No fracture or dislocation. Cartilage: Intact Miscellaneous: Small amount fluid surrounding the subscapularis tendon which is likely reactive to the injury. IMPRESSION: 1. High-grade partial tear of the mid to distal long head of the biceps tendon. 2. There is also abnormal signal within the subscapularis tendon consistent with a partial tear. There may be a small linear interstitial tear within the mid subscapularis tendon. 3. Abnormal signal within the posterior superior labrum consistent with a SLAP tear. 4. No fracture or dislocation. Electronically signed by: Nav Melendez M.D. 07/11/2017 2:33 PM Dictated Date/Time: 07/10/2017 9:18 PM
== END | disposition home or self-care (01) ==
LOC: C.MRI 20:13
DX: S46.111A Strain of muscle, fascia and tendon of long head of biceps, right arm, initial encounter (principal); M25.511 Pain in right shoulder; X58.XXXA Exposure to other specified factors, initial encounter